=== PATIENT | male | born 1950 | race Caucasian/White ===

== ENCOUNTER 2018-11-25 09:05 | Emergency (ER) | payer MEDICARE ==
[2018-11-25] MEDS ORDERED: DOXYcycline CAP(*) 100 MG PO ONE (09:36)
[2018-11-25 09:45] VITALS: BP 151/79
--- NOTE | 2018-11-25 09:52 | ED ---
Skin Complaint - HPI Summary HPI Summary: This patient is a 68-year-old male presenting to the ED with a concern for tick bite to the right side of the abdomen. Patient states he believes he got this 3 days ago on Saturday while outside. He did not notice it until this morning. He was able to dislodge the tick and states this was very small, however identified as a deer tick. - History of Current Complaint Chief Complaint: EDRashSkinAbscess Time Seen by Provider: 11/25/18 09:28 Stated Complaint: tick bite Hx Obtained From: Patient Onset/Duration: Started Hours Ago Skin Exposure Onset/Duration: Hours Ago Timing: Constant Onset Severity: Mild Current Severity: None Pain Intensity: 0 Pain Scale Used: 0-10 Numeric Aggravating Symptom(s): Nothing Alleviating Symptom(s): Nothing Associated Signs & Symptoms: Negative - Allergy/Home Medications Allergies/Adverse Reactions: Allergies Allergy/AdvReac Type Severity Reaction Status Date / Time Penicillins Allergy Intermediate Hives Verified 11/05/17 07:18 PMH/Surg Hx/FS Hx/Imm Hx Previously Healthy: Yes Endocrine/Hematology History: Reports: Hx Diabetes - No complications Denies: Hx Systemic Lupus Erythematosus, Hx Thyroid Disease, Hx Anemia Cardiovascular History: Denies: Hx Congestive Heart Failure, Hx Hypertension Respiratory History: Reports: Hx Sleep Apnea - NOT BEEN Dx, UP MANY TIMES Denies: Hx Asthma, Hx Chronic Obstructive Pulmonary Disease (COPD) GI History: Denies: Hx Ulcer History: Reports: Hx Kidney Stones - Hx OF , PASSED, Other Problems/ Disorders - 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 Denies: Hx Dialysis, Hx Renal Disease Musculoskeletal History: Reports: Hx Arthritis - HIPS, BACK, NECK, Hx Rheumatoid Arthritis Denies: Other Musculoskeletal History - Cancer History Cancer Type, Location 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 Hx Chemotherapy: Yes - 2 years ago - Surgical History Surgery Procedure, Year, and Place: 1999 CYST REMOVAL RIGHT HEEL, BONE GRAFT FROM HIP [facility] Hx Anesthesia Reactions: No Infectious Disease History: No Infectious Disease History: Denies: Hx Hepatitis, Hx Human Immunodeficiency Virus (HIV), Traveled Outside the [place] in Last 30 Days - Social History Occupation: Unemployed Lives: With Family Alcohol Use: None Hx Substance Use: No Substance Use Type: Reports: None Hx Tobacco Use: No Smoking Status (MU): Former Smoker Type: Cigarettes Amount Used/How Often: 1/2PPD 25 YRS Have You Smoked in the Last Year: No Review of Systems Negative: Fever, Chills, Skin Diaphoresis Negative: Palpitations, Chest Pain Negative: Shortness Of Breath, Cough Genitourinary: Negative Positive: no symptoms reported, see HPI Negative: Arthralgia, Myalgia Positive: Other - right side body previous tick Neurological: Negative All Other Systems Reviewed And Are Negative: Yes Physical Exam Triage Information Reviewed: Yes Vital Signs On Initial Exam: Initial Vitals Temp Pulse Resp BP Pulse Ox 98.6 F 66 18 162/101 99 11/25/18 09:19 11/25/18 09:19 11/25/18 09:19 11/25/18 09:19 11/25/18 09:19 Vital Signs Reviewed: Yes Appearance: Positive: Well-Appearing, Well-Nourished Skin: Positive: Warm, Skin Color Reflects Adequate Perfusion, Other - small .5cm erythematous area with small black center resembling area of previous tick Head/Face: Positive: Normal Head/Face Inspection Eyes: Positive: EOMI, Conjunctiva Clear Neck: Positive: Supple, Nontender Respiratory/Lung Sounds: Positive: Clear to Auscultation, Breath Sounds Present Cardiovascular: Positive: RRR, Pulses are Symmetrical in both Upper and Lower Extremities Musculoskeletal: Positive: Normal, Strength/ROM Intact Neurological: Positive: Speech Normal Psychiatric: Positive: Affect/Mood Appropriate Procedures - Sedation Patient Received Moderate/Deep Sedation with Procedure: No Diagnostics - Vital Signs Vital Signs Temp Pulse Resp BP Pulse Ox 11/25/18 09:44 97.7 F 61 19 151/79 98 11/25/18 09:19 98.6 F 66 18 162/101 99 - Laboratory Lab Statement: Any lab studies that have been ordered have been reviewed, and results considered in the medical decision making process. Course/Dx - Course Course Of Treatment: During this course of treatment, the patient is evaluated for a previous tick bite to the right side body. No sxs. No EM rash. No fevers. Patient states took is probably been present 3 days, however is unsure. His concern for Lyme disease. He was able to dislodge the tick this morning and states it was very tiny, but identified it as a deer tick. Patient was given 200 mg doxycycline. He will follow up with Dr. Hunt or his PCP for any worsening or changing symptoms. - Diagnoses Provider Diagnoses: Tick bite Discharge ED - Sign-Out/Discharge Documenting (check all that apply): Patient Departure - Discharge Plan Condition: Stable Disposition: HOME Patient Education Materials: Tick Bite (ED) Referrals: Ana PADILLA,Clarke Connors [Medical Doctor] - Ayala Gutierrez MD [Primary Care Provider] - Additional Instructions: Please follow up with Dr. Hunt only if you develop fevers, rashes or other symptoms - Billing Disposition and Condition Condition: STABLE Disposition: Home - Attestation Statements Provider Attestation: pt seen by midlevel provider independently, based on their assessment, it was not necessary to present the case to me but I was available for consultation. I did not form a physician-patient relationship with the patient. The chart however, has been reviewed. am signing this note strictly in an administrative capacity.
== END 2018-11-25 09:41 | disposition home or self-care (01) ==
LOC: ED 09:05
DX: S30.861A Insect bite (nonvenomous) of abdominal wall, initial encounter (principal); W57.XXXA Bitten or stung by nonvenomous insect and other nonvenomous arthropods, initial encounter; Y92.9 Unspecified place or not applicable; E11.9 Type 2 diabetes mellitus without complications; M06.9 Rheumatoid arthritis, unspecified; Z88.0 Allergy status to penicillin; Z87.891 Personal history of nicotine dependence
CPT/HCPCS: 99282; A9270-GY

== ENCOUNTER 2019-02-07 08:06 | Emergency (ER) | payer MEDICARE, MEDICAID ==
[2019-02-07 08:12] VITALS: BP 166/101
--- OUTSIDE RECORDS SUMMARY | 2019-02-07 08:22 | XMS REPORT | Continuity of Care Document ---
:1950 External Reference #:[id number] Author Name Gabrielle John DO (transmitted by agent of provider Belen Gunter) Address [address] [place] [address] Care Team Providers Name Role Phone [facility] - Care Team Information Research Scholar Claim Representative Simone Santos MD - Gymnastic Teacher Care Team Information Research Scholar Pavel Beasley M.D. - Hematology & Care Team Information Research Scholar [phone] Oncology Nacho Harris MD - Care Team Information Research Scholar [phone] Ophthalmology Jackelin Atkins MD - Gastroenterology Care Team Information Research Scholar Ayala Gutierrez M.D. - Family Medicine Care Team Information Research Scholar Problems Active Problems Provider Date Malignant lymphoma of extranodal Ramana Montague M.D.,FACP Onset: 2013 AND/OR solid organ site Type 2 diabetes mellitus Ramana Montague M.D.,FACMalika Onset: 03/23/2013 Mixed hyperlipidemia Ramana Montague M.D.,FACP Onset: 07/30/2016 Chronic kidney disease stage 2 Guille Blanc M.D. Onset: 11/15/2016 Essential hypertension Guille Blanc M.D. Onset: 11/15/2016 Type 2 diabetes mellitus with diabetic Guille Blanc M.D. Onset: 2016 neuropathy, unspecified Social History Type Date Description Comments Sex Unknown Cigarette Use Quit 20 Years Ago ETOH Use 07/30/2016 Occasionally consumes beer Tobacco Use Start: Unknown End: Patient is a former smoker Unknown Recreational Drug Use Denies Drug Use Smoking Status Reviewed: 01/09/19 Patient is a former smoker Exercise Type/Frequency Does not exercise Allergies, Adverse Reactions, Alerts Active Allergies Reaction Severity Comments Date Penicillins 02/27/2013 Medications Active Medications SIG Qnty Indications Ordering Date Provider Terbinafine HCL apply to affected 30gm B35.3 Ayala Gutierrez MD 07/09/2018 1% area 2x/day for 2 Cream weeks Nystatin apply to affected 3units B35.3 Ayala Gutierrez MD 07/09/2018 Powder area 3-4x/day Glipizide take 1 tablet by 180tabs I10 Ayala Gutierrez MD 02/13/2016 5mg Tablets mouth two times daily 1 Touch Delica use twice daily 1Month Ramana Connors 09/06/2015 Thin and as needed Alton Montague,FACP 33G [facility] [place] [facility] Lyrica take 1 capsule by 90caps I10 Ayala Gutierrez MD 08/24/2015 75mg Capsules mouth three times daily as needed for pain Janumet XR take 1 tablet by 180tabs I10 Ayala Gutierrez MD 05/16/2015 50-1000mg mouth two times Tablets ER 24HR daily Lisinopril take 1 tablet by 90tabs Zhen0 Ayala Gutierrez MD 02/14/2015 5mg mouth every day Tablets Simvastatin Take 1 Tablet By 90tabs I10 Daniela Cope, 11/08/2014 20mg Mouth Every M.D. Tablets Evening Onetouch Ultra 2 Use Daily To Test 1units Jay Vazquez NP 06/29/2014 Glucose W/Device Kit Onetouch Ultra Blue check bs twice a 100units E11.65 Guille 05/27/2014 day and as needed Alton Blanc Strips dx e11.21 02/29/16 BD Ultra-Fine two times a day 1Month Guille 05/06/2014 Lancets Last Jayjay:08/24/15 Alton Blanc [facility] DX:E11.21 Truetest Test test blood sugar 100units Ramana Connors 12/08/2013 Strips one time daily Alton Montague,FACP and as needed e11.21 03/10/16 Vitamin B-12 1 by mouth every Unknown Tablets day Sub Immunizations CPT Code Status Date Vaccine Reaction Lot # [id number] Given 01/09/2019 Tdap - [id number] Tetanus/Diptheria/Acellular Pertussis [id number] Given 11/15/2016 Influenza Virus Vaccine, no immediate reaction, [id number] Quadrivalent, Split, pt tolerated well Preservative Free 95761 Given 02/13/2016 Influ Virus Vaccine, [id number] Quadrivalent, Split Virus, [place] [address] Given 02/14/2015 Zoster (Zostavax) No reaction noted [id number] 18202 Given 11/08/2014 Pneumococcal Conjugate [id number] Vaccine 13 Valent For Intramuscular Use 30571 Given 03/20/2013 Pneumonia Vaccine [id number] Refused 03/20/2013 Fluvirin Im 3Yrs And Older Vital Signs Date Vital Result Comment 01/09/2019 8:07am Height 69 inches 5'9" Weight 202.00 lb Heart Rate 67 /min BP Systolic 140 mmHg BP Diastolic 70 mmHg BP Systolic Sitting 136 mmHg BP Diastolic Sitting 76 mmHg Body Temperature 97.9 F O2 % BldC Oximetry 97 % BMI (Body Mass Index) 29.8 kg/m2 07/09/2018 7:40am Height 70 inches 5'10" Weight 203.00 lb Heart Rate 59 /min BP Systolic Sitting 126 mmHg BP Diastolic Sitting 70 mmHg BMI (Body Mass Index) 29.1 kg/m2 Results Test Acquired Date Facility Test Result H/L Range Note CBC Auto 10/28/2018 [facility] White Blood 8.9 10^3/uL Normal 3.5-10.[address] [place] [address] [phone] Red Blood Count 4.49 10^6/uL Normal 4.18-5.48 Hemoglobin 13.7 g/dL Low 14.0-18.0 Hematocrit 40 % Low 42-52 Mean Corpuscular Volume 90 fL Normal 80-94 Mean Corpuscular Hemoglobin 30 pg Normal 27-31 Mean Corpuscular HGB Conc 34 g/dL Normal 31-36 Red Cell Distribution Width 14 % Normal 10-15 Platelet Count 222 10^3/uL Normal 150-450 Mean Platelet Volume 9.0 fL Normal 7.4-10.4 Abs Neutrophils 5.4 10^3/uL Normal 1.5-7.7 Abs Lymphocytes 2.8 10^3/uL Normal 1.0-4.8 Abs Monocytes 0.6 10^3/uL Normal 0-0.8 Abs Eosinophils 0.2 10^3/uL Normal 0-0.6 Abs Basophils 0.0 10^3/uL Normal 0-0.2 Abs Nucleated RBC 0.0 10^3/uL Granulocyte % 60.4 % Lymphocyte % 30.9 % Monocyte % 6.6 % Eosinophil % 1.7 % Basophil % 0.4 % Nucleated Red Blood Cells % 0.0 Comp Metabolic 10/28/2018 [facility] Sodium 141 mmol/L Normal 135-145 Panel [address] [place] [address] [phone] Potassium 4.5 mmol/L Normal 3.5-5.0 Chloride 109 mmol/L Normal 101-111 Co2 Carbon Dioxide 30 mmol/L Normal 22-32 Anion Gap 2 mmol/L Normal 2-11 Glucose 95 mg/dL Normal 70-100 Blood Urea Nitrogen 31 mg/dL High 6-24 Creatinine 1.28 mg/dL High 0.67-1.17 BUN/Creatinine Ratio 24.2 High 8-20 Calcium 9.2 mg/dL Normal 8.6-10.3 Total Protein 6.3 g/dL Low 6.4-8.9 Albumin 4.2 g/dL Normal 3.2-5.2 Globulin 2.1 g/dL Normal 2-4 Albumin/Globulin Ratio 2.0 Normal 1-3 Total Bilirubin 0.30 mg/dL Normal 0.2-1.0 Alkaline Phosphatase 58 U/L Normal 34-104 Alt 18 U/L Normal 7-52 Ast 14 U/L Normal 13-39 Egfr Non- 56.1 >60 Egfr 67.8 >60 1 Laboratory test finding 10/28/2018 [facility] LDH 150 U/L Normal 140-271 [address] [place] [address] [phone] 1 Because ethnic data is not always readily available, this report includes an eGFR for both -Americans and non- Americans. The National Kidney Disease Education Program (NKDEP) does not endorse the use of the MDRD equation for patients that are not between the ages of 18 and 70, are , have extremes of body size, muscle mass, or nutritional status, or are non- or non-. According to the National Kidney Foundation, irrespective of diagnosis, the stage of the disease is based on the level of kidney function: Stage Description GFR(mL/min/1.73 m(2)) 1 Kidney damage with normal or decreased GFR 90 2 Kidney damage with mild decrease in GFR 60-89 3 Moderate decrease in GFR 30-59 4 Severe decrease in GFR 15-29 5 Kidney failure <15 (or dialysis) Procedures Date Code Description Status 09/24/2018 177986734 Diabetic Retinal Eye Exam Completed 07/10/2016 460851494 Diabetic Retinal Eye Exam Completed 02/12/2015 686241284 Diabetic Retinal Eye Exam Completed 01/10/2015 550198108 Diabetic Foot Exam Completed 03/16/2014 182658938 Diabetic Foot Exam Completed Medical Devices Description No Information Available Encounters Description No Information Available Assessments Date Code Description Provider 01/09/2019 Z00.00 Encounter for general adult medical examination Gabrielle John DO without abnormal findings 01/09/2019 E11.21 Type 2 diabetes mellitus with diabetic Gabrielle John DO nephropathy 01/09/2019 Z23 Encounter for immunization Gabrielle John DO 01/09/2019 I10 Essential (primary) hypertension Gabrielle John DO 01/09/2019 Z12.11 Encounter for screening for malignant neoplasm Gabrielle John DO of colon 01/09/2019 N18.2 Chronic kidney disease, stage 2 (mild) Gabrielle John DO 01/09/2019 Z12.2 Encounter for screening for malignant neoplasm Gabrielle John DO of respiratory organs Plan of Treatment Future Appointment(s):07/16/2019 8:00 am - Gabrielle John DO at [facility] Internal Medicine - [address]/11/2018 - Gabrielle John DOZ00.00 Encounter for general adult medical examination without abnormal findingsFollow up:6 months with ZdoiejW36.21 Type 2 diabetes mellitus with diabetic nephropathyNew Labs:Urine Microalbumin Random, Ordered: 01/09/19Creatinine Random Urine, Ordered: Z23 Encounter for immunizationComments:Your blood pressure is not quite at goal today but close Stay active with exercise, avoid processed [id number] Essential (primary) [id number] Encounter for screening for malignant neoplasm of colonComments:we will resend the cologuard today please CALL US if you don't receive it in the next gfbmhJ48.2 Chronic kidney disease, stage 2 ( mild)Z12.2 Encounter for screening for malignant neoplasm of respiratory organs Functional Status Description No Information Available Mental Status Description No Information Available Referrals Description No Information Available
--- NOTE | 2019-02-07 08:26 | ED ---
Throat Pain/Nasal Congestion - HPI Summary HPI Summary: This patient is a 68 year old male presenting to [facility] with a chief complaint of hearing problems since 3 weeks ago. He states he cannot hear anything in his right ear and has decreased hearing in his left ear. He states his balance has felt off. He says he has tried OTC medications to no relief. He states he is concerned of bilateral ear infection. - History of Current Complaint Chief Complaint: EDEarPain Time Seen by Provider: 02/07/19 08:19 Hx Obtained From: Patient Onset/Duration: Lasting Weeks - Allergies/Home Medications Allergies/Adverse Reactions: Allergies Allergy/AdvReac Type Severity Reaction Status Date / Time Penicillins Allergy Intermediate Hives Verified 02/07/19 08:12 Home Medications: Home Medications Cyanocobalamin TAB* [Vitamin B12 TAB*] 1,000 mcg PO DAILY 02/07/19 [History Confirmed 02/07/19] Lisinopril TAB* [Prinivil TAB 5 MG*] 5 mg PO DAILY 02/07/19 [History Confirmed 02/07/19] Nystatin CREAM* 1 applic TOPICAL TID PRN 02/07/19 [History Confirmed 02/07/19] Pregabalin [Lyrica] 75 mg PO TID PRN 02/07/19 [History Confirmed 02/07/19] Simvastatin 20 mg PO QPM 02/07/19 [History Confirmed 02/07/19] Sitaglip/Metform XR50/1000(NR) [Janumet Xr (NR)] 1 tab PO BID 02/07/19 [ History Confirmed 02/07/19] Terbinafine HCl [Antifungal] 1 applic TOPICAL BID PRN 02/07/19 [History Confirmed 02/07/19] glipiZIDE [Glipizide] 5 mg PO BID 02/07/19 [History Confirmed 02/07/19] PMH/Surg Hx/FS Hx/Imm Hx Endocrine/Hematology History: Reports: Hx Diabetes - No complications Denies: Hx Systemic Lupus Erythematosus, Hx Thyroid Disease, Hx Anemia Cardiovascular History: Denies: Hx Congestive Heart Failure, Hx Hypertension Respiratory History: Reports: Hx Sleep Apnea - NOT BEEN Dx, UP MANY TIMES Denies: Hx Asthma, Hx Chronic Obstructive Pulmonary Disease (COPD) GI History: Denies: Hx Ulcer History: Reports: Hx Kidney Stones - Hx OF 1990s, PASSED, Other Problems/ Disorders - 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 Denies: Hx Dialysis, Hx Renal Disease Musculoskeletal History: Reports: Hx Arthritis - HIPS, BACK, NECK, Hx Rheumatoid Arthritis Denies: Other Musculoskeletal History - Cancer History Cancer Type, Location 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 Hx Chemotherapy: Yes - 2 years ago - Surgical History Surgery Procedure, Year, and Place: 2000 CYST REMOVAL RIGHT HEEL, BONE GRAFT FROM HIP [facility] Hx Anesthesia Reactions: No Infectious Disease History: No Infectious Disease History: Denies: Hx Hepatitis, Hx Human Immunodeficiency Virus (HIV), Traveled Outside the [place] in Last 30 Days - Family History Known Family History: Positive: Diabetes - Social History Alcohol Use: None Hx Substance Use: No Substance Use Type: Reports: None Hx Tobacco Use: No Smoking Status (MU): Former Smoker Type: Cigarettes Amount Used/How Often: 1/2PPD 25 YRS Have You Smoked in the Last Year: No Review of Systems Positive: Other - Loss of balance Positive: Other - Decreased hearing on both ears. All Other Systems Reviewed And Are Negative: Yes Physical Exam - Summary Physical Exam Summary: VITAL SIGNS: Reviewed. GENERAL: Patient is a well-developed and nourished MALE who is lying comfortable in the stretcher. Patient is not in any acute respiratory distress. HEAD AND FACE: No signs of trauma. No ecchymosis, hematomas or skull depressions. No sinus tenderness. EYES: PERRLA, EOMI x 2, No injected conjunctiva, no nystagmus. EARS: Hearing grossly intact. Redness and bulging in the right TM. MOUTH: Oropharynx within normal limits. NECK: Supple, trachea is midline, no adenopathy, no JVD, no carotid bruit, no c- spine tenderness, neck with full ROM. CHEST: Symmetric, no tenderness at palpation. LUNGS: Clear to auscultation bilaterally. No wheezing or crackles. CVS: Regular rate and rhythm, S1 and S2 present, no murmurs or gallops appreciated. ABDOMEN: Soft, non-tender. No signs of distention. No rebound, no guarding, and no masses palpated. Bowel sounds are normal. EXTREMITIES: FROM in all major joints, no edema, no cyanosis or clubbing. NEURO: Alert and oriented x 3. No acute neurological deficits. Speech is normal and follows commands. SKIN: Dry and warm. Triage Information Reviewed: Yes Vital Signs On Initial Exam: Initial Vitals Temp Pulse Resp BP Pulse Ox 98.7 F 73 16 166/101 96 02/07/19 08:09 02/07/19 08:09 02/07/19 08:09 02/07/19 08:09 02/07/19 08:09 Vital Signs Reviewed: Yes Procedures - Sedation Patient Received Moderate/Deep Sedation with Procedure: No Diagnostics - Vital Signs Vital Signs Temp Pulse Resp BP Pulse Ox 02/07/19 08:09 98.7 F 73 16 166/101 96 - Laboratory Lab Statement: Any lab studies that have been ordered have been reviewed, and results considered in the medical decision making process. EENT Course/Dx - Course Assessment/Plan: This patient is a 68 year old male presenting to [facility] with a chief complaint of hearing problems since 3 weeks ago. He states he cannot hear anything in his right ear and has decreased hearing in his left ear. Physical exam revealed bulging and redness in the right tympanic membrane. The patient was prescribed Azithromycin to treat this problem. Due to the concern of decrease in hearing, the patient was instructed to follow up with Dr. Merida , ENT or return to the Emergency Department if this symptom persists after several days. This plan for discharge was discussed with the patient and he was agreeable with this plan. - Diagnoses Provider Diagnoses: Otitis media Discharge ED - Sign-Out/Discharge Documenting (check all that apply): Patient Departure - Discharge - Discharge Plan Condition: Stable Disposition: HOME Prescriptions: Azithromycin TAB* [Zithromax TAB (Z-VISHAL) 250 mg #6 tabs] 2 tab PO .TODAY, THEN 1 DAILY #1 vishal Patient Education Materials: Ear Infection (ED) Referrals: Damion Merida MD [Medical Doctor] - Additional Instructions: Schedule an ENT appointment with Dr. Merida if symptoms do not improve within 2-3 days, or return to the ED. - Billing Disposition and Condition Condition: STABLE Disposition: Home - Attestation Statements Document Initiated by Scribe: Yes Documenting Scribe: Willie Guzman Provider For Whom Jovonibbessie is Documenting (Include Credential): Mane Castellanos MD Scribe Attestation: Willie Ely, scribed for Mane Castellanos MD on 02/07/19 at 1826. Scribe Documentation Reviewed: Yes Provider Attestation: The documentation as recorded by the scribe, Willie Guzman accurately reflects the service I personally performed and the decisions made by me, Mane Castellanos MD Status of Scribe Document: Viewed
== END 2019-02-07 08:43 | disposition home or self-care (01) ==
LOC: ED 08:06
DX: H66.93 Otitis media, unspecified, bilateral (principal); E11.9 Type 2 diabetes mellitus without complications; Z87.442 Personal history of urinary calculi; Z85.72 Personal history of non-Hodgkin lymphomas; Z87.891 Personal history of nicotine dependence; Z79.84 Long term (current) use of oral hypoglycemic drugs; Z79.899 Other long term (current) drug therapy; Z88.0 Allergy status to penicillin
CPT/HCPCS: 99281

== ENCOUNTER 2022-02-05 08:21 | Inpatient (IN) ==
[2022-02-05] MEDS ORDERED: Ondansetron 4 mg VIAL 2 MG/ML 2 ml VIAL IV ONE (09:08)
[2022-02-05] MEDS ORDERED: NS 0.9% 1000 ml BAG 1,000 ML IV ONE (09:09)
[2022-02-05 09:30] LABS: Hematocrit 45 % (42-52); Hemoglobin 14.2 g/dL (14.0-18.0); Mean Corpuscular HGB Conc 31 g/dL (31-36); Mean Corpuscular Hemoglobin 28 pg (27-31); Mean Corpuscular Volume 89 fL (80-94); Mean Platelet Volume 10.8 fL (7.4-10.4); Platelet Count 486 10^3/uL (150-450); Red Blood Count 5.07 10^6 /uL (4.18-5.48); Red Cell Distribution Width 14 % (10-15); White Blood Count 23.2 10^3/uL (3.5-10.8)
[2022-02-05 10:08] LABS: Albumin 3.6 g/dL (3.2-5.2); Calcium 10.5 mg/dL (8.6-10.3); Total Bilirubin 0.4 mg/dL (0.2-1.0)
[2022-02-05 10:09] LABS: Potassium 5.6 mmol/L (3.5-5.0)
[2022-02-05 10:14] LABS: Albumin/Globulin Ratio 1.2 (1-3); Globulin 3.1 g/dL (2-4); Total Protein 6.7 g/dL (6.4-8.9); eGFR CKD-EPI 26.2 (>60)
[2022-02-05 10:27] LABS: ABS Lymphocytes 1.9 10^3/ul (1.0-4.8); ABS Monocytes 0.9 10^3/ul (0-0.8); ABS Neutrophils 20.4 10^3/ul (1.5-7.7); Lymphocyte % 8.3 %
[2022-02-05] MEDS ORDERED: Cefepime 1 GM in Dextrose 1 GM/50 ML BAG IV ONE (10:28)
[2022-02-05 10:37] LABS: TSH Ultra Thyroid Stim Horm 0.11 mcIU/mL (0.34-5.60)
[2022-02-05] MEDS ORDERED: Insulin Infusion 100unit/100mL 100 UNIT/100 ML BAG IV ONE (10:41)
[2022-02-05] MEDS ORDERED: Dextrose 50% Syringe 50 ml 25 GM/50 ML SYRINGE IV PUSH PRN (10:41)
[2022-02-05 11:00] LABS: High Sensitivity Troponin 1 Hr 44 pg/mL (<20)
[2022-02-05] MEDS ORDERED: NORMOSOL-R pH 7.4 1000 mL BAG 1,000 ML IV SCH (11:00)
[2022-02-05 11:30] LABS: Venous Bicarbonate HCO3 21.1 mmol/L (24-28)
[2022-02-05] MEDS: Insulin Infusion 100unit/100mL 100 UNIT/100 ML BAG IV SCH ×2 (13:57→22:38)
[2022-02-05] MEDS ORDERED: Insulin Infusion 100unit/100mL 100 UNIT/100 ML BAG IV SCH ×2 (14:00)
[2022-02-05 14:17] LABS: Activated Partial Thrombo Time 24.1 seconds (26.0-38.0); INR 1.01 (0.89-1.11)
[2022-02-05] MEDS: NORMOSOL-R pH 7.4 1000 mL BAG 1,000 ML IV SCH ×2 (14:21→19:23)
[2022-02-05 15:11] LABS: eGFR CKD-EPI 27.1 (>60)
[2022-02-05 15:13] LABS: Calcium 10.1 mg/dL (8.6-10.3); Magnesium 2.9 mg/dL (1.9-2.7); Phosphorus 4.7 mg/dL (2.5-5.0); eGFR CKD-EPI 27.5 (>60)
[2022-02-05 15:14] LABS: Potassium 5.2 mmol/L (3.5-5.0)
[2022-02-05 15:30] LABS: Urine Appearance Clear; Urine Bilirubin 1+ (Small) (Negative); Urine Blood Trace (Lysed) (Negative); Urine Color Yellow; Urine Glucose 3+ (>=1000 mg/dL) (Negative); Urine Ketones 1+ (15mg/dL) (Negative)
[2022-02-05 15:31] LABS: Urine Nitrite Negative (Negative); Urine Protein 2+ (100 mg/dL) (Negative); Urine Urobilinogen 0.2 (Negative) (Negative)
[2022-02-05 15:37] LABS: Urine Bacteria Absent (Absent); Urine Red Blood Cell Trace(0-2/hpf) (Absent); Urine White Blood Cell Trace(0-5/hpf) (Absent)
[2022-02-05] MEDS: Pantoprazole VIAL 40 MG VIAL IV SCH (16:09)
[2022-02-05 17:26] LABS: Calcium 9.8 mg/dL (8.6-10.3); Potassium 4.9 mmol/L (3.5-5.0); eGFR CKD-EPI 28.3 (>60)
[2022-02-05 17:45] LABS: Glucose Confirmatory 446 mg/dL (70-100)
[2022-02-05] MEDS: Heparin 5000 UNITS/ML 1 mL VIAL SUBCUT SCH (20:32)
[2022-02-05] MEDS: D5W 1/2 NS 1000 ml BAG 1,000 ML IV SCH (20:54)
[2022-02-05 21:03] LABS: Calcium 9.8 mg/dL (8.6-10.3); Magnesium 2.8 mg/dL (1.9-2.7); Phosphorus 3.5 mg/dL (2.5-5.0); Potassium 4.5 mmol/L (3.5-5.0); eGFR CKD-EPI 29.3 (>60)
[2022-02-05] MEDS ORDERED: Metoprolol Tartrate 5 mg VIAL 5 ml VIAL (1 mg/ml) IV PRN (23:59)
[2022-02-06] MEDS: D5W 1/2 NS 1000 ml BAG 1,000 ML IV SCH (02:08)
[2022-02-06 02:28] LABS: Blood Urea Nitrogen 83 mg/dL (6-24); CO2 Carbon Dioxide 27 mmol/L (22-32); Calcium 9.3 mg/dL (8.6-10.3); Glucose 197 mg/dL (70-100); Magnesium 2.7 mg/dL (1.9-2.7); Phosphorus 3.7 mg/dL (2.5-5.0); Potassium 4.4 mmol/L (3.5-5.0); eGFR CKD-EPI 29.5 (>60)
[2022-02-06 02:30] LABS: Anion Gap 5 mmol/L (2-11); Chloride 118 mmol/L (101-111); Sodium 150 mmol/L (135-145)
[2022-02-06] MEDS ORDERED: Dextrose 50% Syringe 50 ml 25 GM/50 ML SYRINGE IV PUSH PRN (04:30)
[2022-02-06] MEDS: Insulin GLARGINE 100 un/ml 10 ml VIAL SUBCUT SCH ×2 (04:52→09:23)
[2022-02-06 05:26] LABS: Hematocrit 36 % (42-52); Hemoglobin 11.5 g/dL (14.0-18.0); Mean Corpuscular HGB Conc 32 g/dL (31-36); Mean Corpuscular Hemoglobin 28 pg (27-31); Mean Corpuscular Volume 88 fL (80-94); Mean Platelet Volume 9.9 fL (7.4-10.4); Platelet Count 304 10^3/uL (150-450); Red Blood Count 4.14 10^6 /uL (4.18-5.48); Red Cell Distribution Width 14 % (10-15); White Blood Count 24.5 10^3/uL (3.5-10.8)
[2022-02-06 05:34] LABS: ABS Basophils 0.1 10^3/ul (0-0.2); ABS Lymphocytes 2.5 10^3/ul (1.0-4.8); ABS Neutrophils 20.8 10^3/ul (1.5-7.7); Eosinophil % 0.1 %; Lymphocyte % 10.4 %
[2022-02-06 07:45] LABS: C Reactive Protein 11.47 mg/L (<8.01); Calcium 9.4 mg/dL (8.6-10.3); Magnesium 2.6 mg/dL (1.9-2.7); Phosphorus 3.4 mg/dL (2.5-5.0); Potassium 4.3 mmol/L (3.5-5.0); eGFR CKD-EPI 32.3 (>60)
[2022-02-06] MEDS: Aspirin EC 81 mg TAB.EC (enteric coated) PO SCH (09:21)
[2022-02-06] MEDS: Heparin 5000 UNITS/ML 1 mL VIAL SUBCUT SCH (09:21)
[2022-02-06] MEDS ORDERED: Metoprolol Tartrate 5 mg VIAL 5 ml VIAL (1 mg/ml) IV ONE (10:45)
[2022-02-06] MEDS ORDERED: Metoprolol Tartrate 5 mg VIAL 5 ml VIAL (1 mg/ml) IV PRN ×2 (11:05→16:00)
[2022-02-06] MEDS: D5W 1000 ml BAG 1,000 ML IV SCH ×2 (11:16→23:44)
[2022-02-06] MEDS: cefTRIAXone 1 gm/50 mL D5W 1 GM/50 ML BAG IV SCH (11:30)
[2022-02-06] MEDS ORDERED: Ondansetron 4 mg VIAL 2 MG/ML 2 ml VIAL ONE (11:56)
[2022-02-06] MEDS: Ondansetron 4 mg VIAL 2 MG/ML 2 ml VIAL IV PRN (11:59)
[2022-02-06] MEDS ORDERED: Enoxaparin 30 MG/0.3 ML SYR SUBCUT SCH (12:00)
[2022-02-06] MEDS: Pantoprazole VIAL 40 MG VIAL IV SCH (12:28)
[2022-02-06] MEDS: Enoxaparin 80 MG/0.8 ML SYR SUBCUT SCH ×2 (12:28→23:00)
[2022-02-06] MEDS ORDERED: Prochlorperazine 5 mg/ml 2 ml VIAL (10 mg) IV PRN (14:25)
[2022-02-06] MEDS ORDERED: Digoxin IV 0.5 MG/2 ML AMP (0.25 MG/ML) IV SLOW PU ONE ×2 (15:03→21:00)
[2022-02-06 15:08] LABS: % Iron Saturation 11 % (15-55); Iron 23 ug/dL (50-212); Total Iron Binding Capacity 210 mcg/dL (250-450); Transferrin 150 mg/dL (203-362); Unsaturated Iron Binding 187 ug/dL
[2022-02-06 15:24] LABS: Free T4 1.54 ng/dL (0.61-1.12)
[2022-02-06 15:32] LABS: Folate > 20.00 ng/mL (5.90-24.80)
[2022-02-06 15:33] LABS: Vitamin B12 > 1450 pg/mL (180-914)
[2022-02-06 16:25] LABS: Potassium 4.1 mmol/L (3.5-5.0); eGFR CKD-EPI 40.5 (>60)
[2022-02-06 17:47] LABS: Magnesium 2.4 mg/dL (1.9-2.7); Phosphorus 2.9 mg/dL (2.5-5.0)
[2022-02-06 20:13] LABS: Osmolality Serum 389 mOsm/kg (275-295)
[2022-02-07 04:47] LABS: ABS Eosinophils 0.1 10^3/ul (0-0.6); ABS Lymphocytes 2.4 10^3/ul (1.0-4.8); ABS Monocytes 0.6 10^3/ul (0-0.8); ABS Neutrophils 13.6 10^3/ul (1.5-7.7); Eosinophil % 0.8 %; Hematocrit 33 % (42-52); Hemoglobin 10.3 g/dL (14.0-18.0); Lymphocyte % 14.4 %; Mean Corpuscular HGB Conc 32 g/dL (31-36); Mean Corpuscular Hemoglobin 28 pg (27-31); Mean Corpuscular Volume 89 fL (80-94); Mean Platelet Volume 10.2 fL (7.4-10.4); Platelet Count 213 10^3/uL (150-450); Red Blood Count 3.68 10^6 /uL (4.18-5.48); Red Cell Distribution Width 14 % (10-15); White Blood Count 16.8 10^3/uL (3.5-10.8)
[2022-02-07 05:34] LABS: Phosphorus 2.4 mg/dL (2.5-5.0); Potassium 4.1 mmol/L (3.5-5.0); eGFR CKD-EPI 45.4 (>60)
[2022-02-07 05:48] LABS: TSH Ultra Thyroid Stim Horm 0.04 mcIU/mL (0.34-5.60)
[2022-02-07 06:05] LABS: ABS Eosinophils 0.1 10^3/ul (0-0.6); ABS Lymphocytes 2.7 10^3/ul (1.0-4.8); ABS Monocytes 0.6 10^3/ul (0-0.8); ABS Neutrophils 14.5 10^3/ul (1.5-7.7); Eosinophil % 0.8 %; Hematocrit 33 % (42-52); Hemoglobin 10.7 g/dL (14.0-18.0); Lymphocyte % 14.8 %; Mean Corpuscular HGB Conc 32 g/dL (31-36); Mean Corpuscular Hemoglobin 28 pg (27-31); Mean Corpuscular Volume 88 fL (80-94); Platelet Count 231 10^3/uL (150-450); Red Blood Count 3.77 10^6 /uL (4.18-5.48); Red Cell Distribution Width 14 % (10-15); White Blood Count 17.9 10^3/uL (3.5-10.8)
[2022-02-07 06:45] LABS: Calcium 8.5 mg/dL (8.6-10.3); Phosphorus 2.6 mg/dL (2.5-5.0); Potassium 4.2 mmol/L (3.5-5.0); eGFR CKD-EPI 43.8 (>60)
[2022-02-07 06:57] LABS: TSH Ultra Thyroid Stim Horm 0.03 mcIU/mL (0.34-5.60)
[2022-02-07] MEDS: Aspirin EC 81 mg TAB.EC (enteric coated) PO SCH (09:04)
[2022-02-07] MEDS: Insulin GLARGINE 100 un/ml 10 ml VIAL SUBCUT SCH (09:07)
[2022-02-07] MEDS: cefTRIAXone 1 gm/50 mL D5W 1 GM/50 ML BAG IV SCH (10:34)
[2022-02-07] MEDS: Enoxaparin 80 MG/0.8 ML SYR SUBCUT SCH ×2 (11:12→22:27)
[2022-02-07] MEDS: Pantoprazole VIAL 40 MG VIAL IV SCH (13:46)
[2022-02-07] MEDS: Ondansetron 4 mg VIAL 2 MG/ML 2 ml VIAL IV PRN ×2 (13:46→20:27)
[2022-02-08] MEDS: Ondansetron 4 mg VIAL 2 MG/ML 2 ml VIAL IV PRN ×2 (04:15→11:37)
[2022-02-08 06:22] LABS: ABS Eosinophils 0.2 10^3/ul (0-0.6); ABS Lymphocytes 2.7 10^3/ul (1.0-4.8); ABS Monocytes 0.6 10^3/ul (0-0.8); ABS Neutrophils 10.2 10^3/ul (1.5-7.7); Eosinophil % 1.4 %; Hematocrit 32 % (42-52); Hemoglobin 10.5 g/dL (14.0-18.0); Lymphocyte % 19.8 %; Mean Corpuscular HGB Conc 33 g/dL (31-36); Mean Corpuscular Hemoglobin 28 pg (27-31); Mean Corpuscular Volume 87 fL (80-94); Mean Platelet Volume 10.2 fL (7.4-10.4); Platelet Count 197 10^3/uL (150-450); Red Blood Count 3.71 10^6 /uL (4.18-5.48); Red Cell Distribution Width 14 % (10-15); White Blood Count 13.7 10^3/uL (3.5-10.8)
[2022-02-08 06:50] LABS: Calcium 8.6 mg/dL (8.6-10.3); Potassium 3.9 mmol/L (3.5-5.0); eGFR CKD-EPI 60.8 (>60)
[2022-02-08] MEDS ORDERED: Regadenoson 0.4 MG/5 ML SYRINGE ONE (07:21)
[2022-02-08] MEDS ORDERED: Aminophylline 25 MG/ML VIAL ONE (07:22)
[2022-02-08] MEDS: Aspirin EC 81 mg TAB.EC (enteric coated) PO SCH (10:14)
[2022-02-08] MEDS: Insulin GLARGINE 100 un/ml 10 ml VIAL SUBCUT SCH (10:15)
[2022-02-08] MEDS: Enoxaparin 80 MG/0.8 ML SYR SUBCUT SCH ×2 (10:15→22:00)
[2022-02-08] MEDS: cefTRIAXone 1 gm/50 mL D5W 1 GM/50 ML BAG IV SCH (10:21)
[2022-02-08] MEDS: Pantoprazole VIAL 40 MG VIAL IV SCH (12:45)
[2022-02-09 06:13] LABS: ABS Eosinophils 0.3 10^3/ul (0-0.6); ABS Lymphocytes 2.7 10^3/ul (1.0-4.8); ABS Monocytes 0.5 10^3/ul (0-0.8); ABS Neutrophils 8.6 10^3/ul (1.5-7.7); Eosinophil % 2.5 %; Hematocrit 33 % (42-52); Hemoglobin 10.5 g/dL (14.0-18.0); Lymphocyte % 22.1 %; Mean Corpuscular HGB Conc 32 g/dL (31-36); Mean Corpuscular Hemoglobin 28 pg (27-31); Mean Corpuscular Volume 87 fL (80-94); Nucleated Red Blood Cells % 0.1; Platelet Count 195 10^3/uL (150-450); Red Blood Count 3.74 10^6 /uL (4.18-5.48); Red Cell Distribution Width 14 % (10-15); White Blood Count 12.1 10^3/uL (3.5-10.8)
[2022-02-09 06:35] LABS: Calcium 8.5 mg/dL (8.6-10.3); Magnesium 1.7 mg/dL (1.9-2.7); Potassium 3.6 mmol/L (3.5-5.0); eGFR CKD-EPI 60.8 (>60)
[2022-02-09 06:53] LABS: Free T4 1.47 ng/dL (0.61-1.12)
[2022-02-09] MEDS ORDERED: fentaNYL 100 mcg/2 ml 50 MCG/ML VIAL ONE (08:50)
[2022-02-09] MEDS ORDERED: Midazolam 5 mg/5 ml VIAL 1 mg/ml 5 ml VIAL (5 mg) ONE (08:50)
[2022-02-09] MEDS ORDERED: Heparin 2 UNITS/ML 1000 mls 2,000 ML IV ONE (08:51)
[2022-02-09] MEDS ORDERED: VERAPAMIL 2.5 MG/ML 2 ML VIAL ** 5 mg/2 ml ONE (08:52)
[2022-02-09] MEDS ORDERED: Heparin 1,000 UNIT/ML 10 ml (10,000 UNITS) CATHLAB/DIALYSIS ONE (08:52)
[2022-02-09] MEDS ORDERED: nitroGLYCERIN DRIP 25,000 MCG/250 ML BTL ONE (08:52)
[2022-02-09] MEDS ORDERED: Lidocaine 1% MPF 5 ML VIAL ONE (08:53)
[2022-02-09] MEDS ORDERED: Iohexol 350 (CONTRAST) 100 ML PAK IV ONE (08:53)
[2022-02-09] MEDS ORDERED: Atropine 0.1 MG/ML 10 ml SYR (1 mg) ONE (09:27)
[2022-02-09] MEDS ORDERED: Magnesium Sulfate 2 gm BAG 2 GM/50 ML BAG IVPB ONE (09:58)
[2022-02-09] MEDS ORDERED: Bivalirudin 250 MG VIAL ONE (09:59)
[2022-02-09] MEDS ORDERED: NS 0.9% 1000 ml BAG 1,000 ML IV SCH (10:45)
[2022-02-09] MEDS: cefTRIAXone 1 gm/50 mL D5W 1 GM/50 ML BAG IV SCH (12:04)
[2022-02-09] MEDS: Aspirin EC 81 mg TAB.EC (enteric coated) PO SCH (12:05)
[2022-02-09] MEDS: KCL 10 MEQ/50 ML IVPREMIX 10 MEQ/50 ML BAG IV SCH ×2 (12:14→14:06)
[2022-02-09] MEDS: Insulin GLARGINE 100 un/ml 10 ml VIAL SUBCUT SCH (12:27)
[2022-02-09] MEDS: Pantoprazole VIAL 40 MG VIAL IV SCH (13:15)
[2022-02-09] MEDS: Enoxaparin 80 MG/0.8 ML SYR SUBCUT SCH (14:08)
[2022-02-09 16:37] VITALS: BP 145/67
[2022-02-16 07:48] LABS: Anti GAD 65 Antibody 0.01 nmol/L (<= 0.02); Zinc Transporter 8 (ZnT8) Ab <15.0 U/mL (<15.0)
== END 2022-02-09 16:23 | disposition home or self-care (01) | DRG 638 ==
LOC: ED 08:21 → EDHOLD 11:55 → SUATTDRO 11:55 → ICU 12:50 → MEDTELE 02-07 12:55
PROVIDERS: ADMIT Internal Medicine; ATTEND Internal Medicine